=== PATIENT | male | born 2005 | race African-American/Black ===

== ENCOUNTER 2024-05-20 19:55 | Emergency (ER) | payer SELFPAY ==
[~2024-05-20] VITALS: Ht 175.3 cm; Wt 66.0 kg
[2024-05-20 20:13] VITALS: O2SAT 100
[2024-05-20 20:18] VITALS: BP 127/59; PULSE 60; RESP 18; TEMP 98; O2SAT 100
[2024-05-20] MEDS ORDERED: BACITRACIN ZINC OINT UDPKT TOP ONE (22:30)
[2024-05-20] MEDS ORDERED: LIDOCAINE HCL/PF 1% 10 MG/ML 5ML VIAL INFIL ONE (22:30)
== END 2024-05-20 23:39 | disposition home or self-care (01) ==
LOC: ER 19:55
DX: S01.511A Laceration without foreign body of lip, initial encounter (principal); W22.8XXA Striking against or struck by other objects, initial encounter; Y93.89 Activity, other specified; Y92.89 Other specified places as the place of occurrence of the external cause; Y99.8 Other external cause status
CPT/HCPCS: 99283; 12013; J3490

== ENCOUNTER 2024-05-24 08:32 | Emergency (ER) | payer SELFPAY ==
[~2024-05-24] VITALS: Ht 175.3 cm; Wt 66.0 kg
[2024-05-24 08:47] VITALS: O2SAT 98
[2024-05-24 10:41] VITALS: BP 114/77; PULSE 58; RESP 16; TEMP 36.83628; O2SAT 98
== END 2024-05-24 10:47 | disposition home or self-care (01) ==
LOC: ER 08:32
DX: S01.511D Laceration without foreign body of lip, subsequent encounter (principal); Z48.02 Encounter for removal of sutures; X58.XXXD Exposure to other specified factors, subsequent encounter
CPT/HCPCS: 99281; Z7610 ×2